=== PATIENT | male | born 1995 | race American Indian/Alaskan Native ===

== ENCOUNTER 2016-08-22 16:45 | Emergency (ER) | payer BC ==
[2016-08-22] MEDS ORDERED: DELTASONE ONE (17:00)
[2016-08-22 17:02] VITALS: BP 130/71
[2016-08-22] MEDS ORDERED: DELTASONE PO ONE (17:10)
== END 2016-08-22 19:08 | disposition left against medical advice (07) ==
LOC: ED 16:45
DX: R22.0 Localized swelling, mass and lump, head (principal); R06.00 Dyspnea, unspecified; Z88.8 Allergy status to other drugs, medicaments and biological substances; Z53.21 Procedure and treatment not carried out due to patient leaving prior to being seen by health care provider
CPT/HCPCS: 87116; 87430; J7512

== ENCOUNTER 2021-07-13 20:21 | Emergency (ER) | payer BC, OTHER ==
[2021-07-14] MEDS ORDERED: ACETAMINOPHEN 500 MG TAB PO ONE (01:31)
--- NOTE | 2021-07-14 01:37 | Emergency Department Report ---
- General Chief Complaint: Wound/Laceration Stated Complaint: LIP LACERATION Source: patient Mode of arrival: Ambulatory Limitations: No Limitations - History of Present Illness Initial Comments: Patient is a 26-year-old -[place] male with no past medical history presents to the ED with complaint of bleeding lower lip laceration externally after he was elbowed on the lip during basketball practice about 6 hours ago. Patient states that the bleeding is well controlled at this time. Patient states that he is not up-to-date with his tetanus vaccinations. Patient denies dental injury, dizziness, syncope, neck pain, fall, nausea and vomiting, headache, loss of consciousness, change in vision or back pain. -: Sudden, hour(s) (6) Location: face (lower lip) Place: outdoors Context: accidental Associated Symptoms: pain. denies: loss of feeling/numbness, suspect foreign body present, unable to move injured part, weakness followed by dizziness, nausea/vomiting, fever - Related Data Previous Rx's Medication Instructions Recorded Last Taken Type Acetaminophen [Acetaminophen ER 650 mg PO Q8HR PRN #90 tablet.er 10/22/14 Unknown Rx TAB] Ondansetron [Zofran Odt] 4 mg PO Q6H #20 tab.rapdis 10/22/14 Unknown Rx traMADoL [Ultram 50 MG tab] 50 mg PO Q6HR PRN #14 tablet 10/22/14 Unknown Rx Acetaminophen [Tylenol] 500 mg PO Q6HR PRN #24 tablet 07/14/21 Unknown Rx cephALEXin [Keflex] 500 mg PO Q8HR #30 cap 07/14/21 Unknown Rx Allergies Allergy/AdvReac Type Severity Reaction Status Date / Time NSAIDS (Non-Steroidal Allergy Swelling Verified 10/22/14 04:05 Anti-Inflamma ED Review of Systems ROS: Stated complaint: LIP LACERATION Other details as noted in HPI Constitutional: denies: chills, fever Eyes: denies: eye pain, eye discharge, vision change ENT: other (With localized pain). denies: ear pain, throat pain Respiratory: denies: cough, shortness of breath, wheezing Cardiovascular: denies: chest pain, palpitations Endocrine: no symptoms reported Gastrointestinal: denies: abdominal pain, nausea, diarrhea Genitourinary: denies: urgency, dysuria Musculoskeletal: denies: back pain, joint swelling, arthralgia Skin: other (External lower lip laceration with localized pain). denies: rash, lesions Neurological: denies: headache, weakness, paresthesias Psychiatric: denies: anxiety, depression Hematological/Lymphatic: denies: easy bleeding, easy bruising ED Past Medical Hx - Past Medical History Additional medical history: seasonal allergies,[place] Disease - Surgical History Additional Surgical History: testicle repair at age 6 - Social History Smoking Status: Never Smoker Substance Use Type: None - Medications Home Medications: Home Medications Medication Instructions Recorded Confirmed Last Taken Type Acetaminophen [Acetaminophen ER 650 mg PO Q8HR PRN #90 tablet.er 10/22/14 Unknown Rx TAB] Ondansetron [Zofran Odt] 4 mg PO Q6H #20 tab.rapdis 10/22/14 Unknown Rx traMADoL [Ultram 50 MG tab] 50 mg PO Q6HR PRN #14 tablet 10/22/14 Unknown Rx Acetaminophen [Tylenol] 500 mg PO Q6HR PRN #24 tablet 07/14/21 Unknown Rx cephALEXin [Keflex] 500 mg PO Q8HR #30 cap 07/14/21 Unknown Rx ED Physical Exam - General Limitations: No Limitations General appearance: alert, in no apparent distress - Head Head exam: Present: other (External 2 cm lower lip laceration) - Eye Eye exam: Present: normal appearance, PERRL, EOMI Pupils: Present: normal accommodation - ENT ENT exam: Present: normal orophraynx, mucous membranes moist, TM's normal bilaterally, normal external ear exam, other (External 2 cm lower lip lacer ation) - Neck Neck exam: Present: normal inspection, full ROM. Absent: tenderness, lymphadenopathy - Respiratory Respiratory exam: Present: normal lung sounds bilaterally. Absent: respiratory distress, wheezes, rales, rhonchi, stridor, chest wall tenderness, accessory muscle use, decreased breath sounds, prolonged expiratory - Cardiovascular Cardiovascular Exam: Present: regular rate, normal rhythm, normal heart sounds. Absent: systolic murmur, diastolic murmur, rubs, gallop - GI/Abdominal GI/Abdominal exam: Present: soft, normal bowel sounds. Absent: tenderness, guarding, rebound, hyperactive bowel sounds, hypoactive bowel sounds, organomegaly, bruit - Extremities Exam Extremities exam: Present: normal inspection, full ROM, normal capillary refill. Absent: tenderness - Back Exam Back exam: Present: normal inspection, full ROM. Absent: tenderness, CVA tenderness (R), CVA tenderness (L), muscle spasm, paraspinal tenderness, vertebral tenderness - Neurological Exam Neurological exam: Present: alert, oriented X3, CN II-XII intact, normal gait, reflexes normal - Psychiatric Psychiatric exam: Present: normal affect, normal mood - Skin Skin exam: Present: warm, dry, intact, normal color, other (Bleeding external 2 cm lower lip laceration on the lip fold). Absent: rash ED Course Vital Signs 07/13/21 21:02 Temperature 98.7 F Pulse Rate 60 Respiratory 18 Rate Blood Pressure 124/62 O2 Sat by Pulse 98 Oximetry - Laceration /Wound Repair Lower Face Wound Location: mouth (External lower lip laceration on the lip fold) Wound Length (cm): 2 Wound's Depth, Shape: superficial Wound Explored: contaminated Irrigated w/ Saline (ccs): 100 Betadine Prep?: No Wound Debrided: extensive Wound Repaired With: Dermabond Sterile Dressing Applied?: No Progress: The wound was cleaned extensively with normal saline, and a Dermabond solution was used to close the wound. Patient tolerated the procedure well. Patient was therefore discharged home on pain medication and antibiotics and advised to follow-up with his primary care physician in 7 to 10 days for reevaluation or return to the ED immediately if symptoms get worse. ED Medical Decision Making - Medical Decision Making This is a 26-year-old -[place] male with no past medical history presents to the ED with complaint of bleeding lower lip laceration externally after he was elbowed on the lip during basketball practice about 6 hours ago. Patient states that the bleeding is well controlled at this time. Patient states that he is not up-to-date with his tetanus vaccination. In the ED, patient is alert and oriented x3 and is not in any distress. Patient was dayanara xochilt for pain in the ED and also given booster tetanus vaccination. The wound was then cleaned extensively with normal saline and Dermabond was used to close the wound. Patient tolerated procedure well. Patient was thereafter discharged home on pain medication and prophylactic antibiotics and advised to follow-up with his primary care physician in 7 to 10 days for reevaluation. Patient advised return to the ED immediately if symptoms get worse. - Differential Diagnosis Lip laceration; facial contusion; Critical care attestation.: If time is entered above; I have spent that time in minutes in the direct care of this critically ill patient, excluding procedure time. ED Disposition Clinical Impression: Contusion of face Qualifiers: Encounter type: initial encounter Qualified Code(s): S00.83XA - Contusion of other part of head, initial encounter Laceration of lower lip Qualifiers: Encounter type: initial encounter Qualified Code(s): S01.511A - Laceration without foreign body of lip, initial encounter Disposition: HOME / SELF CARE / HOMELESS Is pt being admited?: No Does the pt Need Aspirin: No Condition: Stable Instructions: Mouth Laceration, [id number], Facial or Scalp Contusion, [id number], Facial Laceration, [id number] Additional Instructions: Take medication with food, drink plenty of fluids and follow-up with your primary care physician in 7 to 10 days for reevaluation. Return to the ED i mmediately if symptoms get worse. Prescriptions: Acetaminophen [Tylenol] 500 mg PO Q6HR PRN #24 tablet PRN Reason: Pain , Severe (7-10) cephALEXin [Keflex] 500 mg PO Q8HR #30 cap Referrals: [facility] [Provider Group] - 7-10 days Time of Disposition: 01:41 Print Language: FRISIAN
[2021-07-14] MEDS ORDERED: TETANUS,DIPH,PERTUSS(ACELL) VACCINE 0.5 ML SYRINGE IM ONE (01:59)
[2021-07-14 02:39] VITALS: BP 127/66
== END 2021-07-14 02:40 | disposition home or self-care (01) ==
LOC: ED 20:21
DX: S01.511A Laceration without foreign body of lip, initial encounter (principal); X58.XXXA Exposure to other specified factors, initial encounter; Y93.89 Activity, other specified; Y92.89 Other specified places as the place of occurrence of the external cause; Y99.8 Other external cause status; Z88.6 Allergy status to analgesic agent
CPT/HCPCS: 90471; 90715; 99282